=== PATIENT | male | born 1940 | race Caucasian/White ===

== ENCOUNTER 2016-10-01 14:23 | Emergency (ER) | payer MEDICARE, BC ==
--- NOTE | 2016-10-01 14:32 | ER Document Report ---
ED Medical Screen (RME) - General Stated Complaint: POSSIBLE ANIMAL BITE Time seen by provider: 14:29 Mode of Arrival: Ambulatory Information source: Patient Notes: 75-year-old male presented to ED for a raccoon bite to the left foot and ankle last night. He states that there is no pain he feels that this scratches there. Multiple scratches to his foot and ankle noted,. skin is torn in a couple areas no definite bite mag barbosa. I have greeted and performed a rapid initial assessment of this patient. A comprehensive ED assessment and evaluation of the patient, analysis of test results and completion of medical decision making process will be conducted by an additional ED providers.
[2016-10-01] MEDS ORDERED: RABIES VACCINE (PCEC)/PF 2.5 UNIT/1 ML KIT IM ONE (16:24)
[2016-10-01] MEDS ORDERED: RABIES IMMUNE GLOBULIN INJ/PF 300 UNIT/2 ML SDV IM ONE ×2 (16:24→17:08)
[2016-10-01] MEDS ORDERED: DIPH/PERTUSS(ACELL)/TETANUS VAC/PF 0.5 ML SYR (>=10YO) IM ONE (16:29)
--- NOTE | 2016-10-01 16:39 | ER Document Report ---
ED Animal Bite - General Chief Complaint: Animal Bite Stated Complaint: POSSIBLE ANIMAL BITE Mode of Arrival: Ambulatory Notes: patient is a 75 year old male who presents to the ED c/o raccoon bite last evening. He was letting his dog out when he saw a raccoon, he tried to mario it away but it came up to him, he says he fell back into a chair and he felt it on his foot. EMS came out, assessed the wound and stated no evidence of punture and cleaned it, was told to follow up at PCP. PCP then referred him to the ED for prophylaxis treatment. Sates injury is some scratches on his left foot PMH: HTN, dementia PSH: none SH: previous smoker 20 pack years, no etoh or street drugs TRAVEL OUTSIDE OF THE [place] IN LAST 30 DAYS: No - Related Data Allergies/Adverse Reactions: codeine Allergy (Verified 10/01/16 14:36) Past Medical History - General Information source: Patient, Relative - - Social History Smoking Status: Never Smoker Chew tobacco use (# tins/day): No Frequency of alcohol use: None Drug Abuse: None Family History: Reviewed & Not Pertinent Patient has suicidal ideation: No Patient has homicidal ideation: No Renal/ Medical History: Denies: Hx Peritoneal Dialysis Review of Systems - Review of Systems Constitutional: No symptoms reported EENT: No symptoms reported Cardiovascular: No symptoms reported Respiratory: No symptoms reported Gastrointestinal: No symptoms reported Genitourinary: No symptoms reported Male Genitourinary: No symptoms reported Musculoskeletal: No symptoms reported Skin: See HPI Hematologic/Lymphatic: No symptoms reported Neurological/Psychological: No symptoms reported Physical Exam - Vital signs Vitals: Temp Pulse Resp BP Pulse Ox 98.2 F 57 L 18 135/74 H 97 10/01/16 14:30 10/01/16 14:30 10/01/16 14:30 10/01/16 14:30 10/01/16 14:30 - General General appearance: Appears well, Alert In distress: None - Extremities General upper extremity: Normal inspection, Nontender, Normal color, Normal ROM. No: Edema General lower extremity: Normal inspection, Nontender, Normal color, Normal ROM , Normal strength, Normal temperature, Normal weight bearing. No: Mariana's sign Foot: Abrasion - over the top of his left foot with evidence of skin tear, extends approx 6 cm - Skin Skin Temperature: Warm Skin Moisture: Dry Skin Color: Normal Skin irregularity: other - abrasion Location of irregularity: Extremities Notes: left foot with evidence of abrasion but skin has been broken otherwise no inflammation but mild erythema, no bleeding Course - Re-evaluation Re-evalutation: 10/01/16 19:13 patient is a 75 year old male who presents after ? exposure to rabies last evening. Given that there is evidence of broken skin, indicated to treat with rabies prophylaxis. 2ml or 300u rabies Immune globulin were injected around the left foot wound, the rest was given IM by nursing. please see orders for medication documentation - Vital Signs Vital signs: Temp Pulse Resp BP Pulse Ox 97.5 F 54 L 15 155/75 H 96 10/01/16 18:07 10/01/16 18:07 10/01/16 18:07 10/01/16 18:07 10/01/16 18:07 Discharge - Discharge Clinical Impression: Rabies, need for prophylactic vaccination against, Bite by animal Condition: Good Disposition: HOME, SELF-CARE Additional Instructions: Rabies Prophyllaxis Rabies immunization can prevent infection with the rabies virus. This virus is always fatal if it reaches the nervous system. Exposure to an infected animal's saliva requires a series of shots. If you're already immunized, you may need only a booster shot. It's critical for you to follow the exact schedule of immunizations. After the first shot, we give repeat doses in 3 days, 7 days, 14 days, and 28 days. The repeat doses can also be given through the Health Department or by special arrangement with your doctor. Ibuprofen or acetaminophen can be used for aching and swelling at the injection site. Call the doctor or return if you develop increasing pain, fever , chills, or spreading redness, or if you become short of breath or faint. Please return to the emergency department for your scheduled rabies vaccines. Please see attached form for scheduled dates. Forms: Elevated Blood Pressure Referrals: NICOLE PUGH MD [Primary Care Provider] - Follow up as needed
[2016-10-01 18:23] VITALS: BP 155/75
== END 2016-10-01 18:33 | disposition home or self-care (01) ==
LOC: ER 14:23
DX: S91.352A Open bite, left foot, initial encounter (principal); W55.51XA Bitten by raccoon, initial encounter; Z20.3 Contact with and (suspected) exposure to rabies; Y92.007 Garden or yard of unspecified non-institutional (private) residence as the place of occurrence of the external cause; I10 Essential (primary) hypertension; Z87.891 Personal history of nicotine dependence; Z88.6 Allergy status to analgesic agent
CPT/HCPCS: 90376; 90471; 90675; 90715; 96372; 99283

== ENCOUNTER 2020-02-08 15:50 | Emergency (ER) | payer MEDICARE, BC ==
--- NOTE | 2020-02-08 17:40 | ER Document Report ---
ED Medical Screen (RME) - General Chief Complaint: Rib Pain Stated Complaint: RIB PAIN Time Seen by Provider: 02/08/20 17:28 Primary Care Provider: NICOLE PUGH MD [Primary Care Provider] - Follow up as needed Mode of Arrival: Wheelchair Information source: Emergency Med Personnel Notes: 79-year-old male presented to ED for left chest tenderness and he was found at [facility] confused and needed to be taken home and when he got home he complained of left chest tenderness. Family states that he is got a history of dementia and that he fell recently but they did not say when he fell. Patient does have tenderness to the left ribs to palpation. Patient is very confused. He does know his name he does know his birthdate but did not know his age or where he was. I have greeted and performed a rapid initial assessment of this patient. A comprehensive ED assessment and evaluation of the patient, analysis of test results and completion of medical decision making process will be conducted by an additional ED providers. TRAVEL OUTSIDE OF THE [place] IN LAST 30 DAYS: No - Related Data Allergies/Adverse Reactions: codeine Allergy (Verified 10/01/16 14:36) Past Medical History - Past Medical History Cardiac Medical History: Reports: Hx Hypertension Renal/ Medical History: Denies: Hx Peritoneal Dialysis - Immunizations Hx Diphtheria, Pertussis, Tetanus Vaccination: No - needs tetanus updated Physical Exam - Vital signs Vitals: Temp Pulse Resp Pulse Ox 98.7 F 81 16 96 02/08/20 17:31 02/08/20 17:31 02/08/20 17:31 02/08/20 17:31 Course - Vital Signs Vital signs: Temp Pulse Resp BP Pulse Ox 98.7 F 81 16 96 02/08/20 17:31 02/08/20 17:31 02/08/20 17:31 02/08/20 17:31 Doctor's Discharge - Discharge Referrals: NICOLE PUGH MD [Primary Care Provider] - Follow up as needed
--- NOTE | 2020-02-08 18:23 | RADIOLOGY REPORT (SQ) ---
EXAM DESCRIPTION: RIBS LEFT W/PA CHEST IMAGES COMPLETED DATE/TIME: 02/08/2020 6:04 pm REASON FOR STUDY: Recently unsure when left rib pain COMPARISON: None. TECHNIQUE: Frontal view of the chest and additional views of the left ribs acquired. NUMBER OF VIEWS: Three views LIMITATIONS: None. FINDINGS: FRONTAL CXR: No pneumothorax. No pleural effusion. No atelectasis or infiltrates. RIBS: No displaced rib fractures. No lytic or blastic bony lesions. OTHER: No other significant finding. IMPRESSION: NO PNEUMOTHORAX. NO DISPLACED RIB FRACTURES. COMMENT: SITE OF TRAUMA/COMPLAINT MARKED/STAMP COMPLETED: No TECHNICAL DOCUMENTATION: JOB ID: [id number] 2010 [employer]- All Rights Reserved Reading location - IP/workstation name: [email or web address]
[2020-02-08 19:27] LABS: ABSOLUTE BASOPHILS # (AUTO) 0.1 10^3/uL (0.0-0.2); ABSOLUTE EOSINOPHILS # (AUTO) 0.2 10^3/uL (0.0-0.6); ABSOLUTE LYMPHOCYTES (AUTO) 1.6 10^3/uL (0.5-4.7); ABSOLUTE MONOCYTES (AUTO) 0.9 10^3/uL (0.1-1.4); ABSOLUTE NEUT (AUTO) 6.6 10^3/uL (1.7-8.2); BASOPHILS % (AUTO) 1.1 % (0-2); EOSINOPHILS % (AUTO) 1.8 % (0-6); HEMATOCRIT 46.5 % (37.9-51.0); HEMOGLOBIN 15.9 g/dL (13.5-17.0); LYMPHOCYTES % (AUTO) 16.7 % (13-45); MEAN CORPUSCULAR HEMOGLOBIN 31.9 pg (27.0-33.4); MEAN CORPUSCULAR HGB CONC 34.2 g/dL (32.0-36.0); MEAN CORPUSCULAR VOLUME 93 fl (80-97); MONOCYTES % (AUTO) 9.9 % (3-13); PLATELET COUNT 205 10^3/uL (150-450); RED BLOOD COUNT 4.98 10^6/uL (4.35-5.55); SEGMENTED NEUTROPHILS % (AUTO) 70.5 % (42-78); TOTAL CELLS COUNTED % (AUTO) 100 %; WHITE BLOOD COUNT 9.4 10^3/uL (4.0-10.5)
[2020-02-08 19:45] LABS: APPEARANCE,URINE SLIGHTLY-CLOUDY; BILIRUBIN,URINE NEGATIVE (NEGATIVE); CALCIUM OXALATE CRYSTALS,URINE RARE /HPF; COLOR,URINE YELLOW; GLUCOSE, URINE >=500 mg/dL (NEGATIVE); KETONES,URINE NEGATIVE (NEGATIVE); LEUKOCYTE ESTERASE,URINE NEGATIVE (NEGATIVE); NITRITE,URINE NEGATIVE (NEGATIVE); PROTEIN,URINE NEGATIVE (NEGATIVE); URINE SPECIFIC GRAVITY 1.021
[2020-02-08 19:48] LABS: ALBUMIN 4.3 g/dL (3.5-5.0); ALKALINE PHOSPHATASE 117 U/L (38-126); ANION GAP 8 (5-19); ASPARTATE AMINO TRANSFERASE 29 U/L (17-59); BLOOD UREA NITROGEN 16 mg/dL (7-20); CALCIUM 9.2 mg/dL (8.4-10.2); CARBON DIOXIDE 32 mmol/L (22-30); CHLORIDE 99 mmol/L (98-107); GLUCOSE 162 mg/dL (75-110); POTASSIUM 4.3 mmol/L (3.6-5.0)
[2020-02-08 19:49] LABS: BILIRUBIN,TOTAL 0.6 mg/dL (0.2-1.3); TOTAL PROTEIN 7.1 g/dL (6.3-8.2)
--- NOTE | 2020-02-08 22:53 | ER Document Report ---
ED General - General Chief Complaint: Rib Pain Stated Complaint: RIB PAIN Time Seen by Provider: 02/08/20 17:28 Primary Care Provider: NICOLE PUGH MD [NO LOCAL MD] - Follow up as needed Mode of Arrival: Wheelchair TRAVEL OUTSIDE OF THE [place] IN LAST 30 DAYS: No - HPI Onset: Just prior to arrival Onset/Duration: Gradual Quality of pain: Achy Severity: Mild Pain Level: 1 Associated symptoms: Other - pain with taking a deep breath on left side Exacerbated by: Deep breathing Relieved by: Denies Similar symptoms previously: No Recently seen / treated by doctor: No Notes: 79 year old male with a history of Dementia and HTN who lives with his brought to the ER for left sided chest wall pain after an apparent fall. The patient can not tell me why he is in the ER this evening and he does not kate mber what happened earlier in the day. Apparently the patient's family wanted the patient evaluated for left sided chest wall pain and left leg pain. The patient has no leg complaints when I ask him and he is able to ambulate without any issues. - Related Data Allergies/Adverse Reactions: codeine Allergy (Verified 10/01/16 14:36) Past Medical History - General Information source: Patient, Emergency Med Personnel - Social History Smoking Status: Former Smoker Frequency of alcohol use: None Drug Abuse: None Lives with: Spouse/Significant other Family History: Reviewed & Not Pertinent Patient has homicidal ideation: No - Past Medical History Cardiac Medical History: Reports: Hx Hypertension Renal/ Medical History: Denies: Hx Peritoneal Dialysis - Immunizations Hx Diphtheria, Pertussis, Tetanus Vaccination: No - needs tetanus updated Review of Systems - Review of Systems Constitutional: Other - confusion EENT: No symptoms reported Cardiovascular: Chest pain - left chest wall Respiratory: No symptoms reported Gastrointestinal: No symptoms reported Genitourinary: No symptoms reported Male Genitourinary: No symptoms reported Musculoskeletal: Other - Left chest wall pain. Family said patient had leg pain too but patient denies this to me Skin: No symptoms reported Hematologic/Lymphatic: No symptoms reported Neurological/Psychological: No symptoms reported -: Yes All other systems reviewed and negative Physical Exam - Vital signs Vitals: Temp Pulse Resp Pulse Ox 98.7 F 81 16 96 02/08/20 17:31 02/08/20 17:31 02/08/20 17:31 02/08/20 17:31 - Notes Notes: GENERAL: Well-appearing, well-nourished and in no acute distress. HEAD: Atraumatic, normocephalic. EYES: Pupils equal round and reactive to light, extraocular movements intact, sclera anicteric, conjunctiva are normal. ENT: External ears normal, nares patent, oropharynx clear without exudates. Moist mucous membranes. NECK: Normal range of motion, supple without lymphadenopathy or JVD. LUNGS: Breath sounds clear to auscultation bilaterally and equal. No wheezes rales or rhonchi. HEART: Regular rate and rhythm without murmurs, rubs or gallops. ABDOMEN: Soft, nontender, normoactive bowel sounds. No guarding, no rebound. No masses appreciated. EXTREMITIES: Normal range of motion, no pitting or edema. No clubbing or cyanosis. NEUROLOGICAL: Cranial nerves II through XII grossly intact. Normal speech and gait. Oriented to person but not to time or place. PSYCH: Normal mood, normal affect. SKIN: Warm, Dry, normal turgor, no rashes or lesions noted. Course - Re-evaluation Re-evalutation: 02/08/20 23:11 The patient is ambulating without assistance in the ER and he is eating on his own without a problem. The patient has dementia and he does not know why he is in the ER. When asked if he has pain in his left chest he says yes but it is difficult to reproduce on physical exam. When asked if he is having any leg pain he says no and he shakes each leg and walks on them with no problems. The pat ient had blood work and a UA which were unremarkable. Patient had a chest xray and left sided rib films which showed no acute process. Patient discharged and told to follow up with his PCP. - Vital Signs Vital signs: Temp Pulse Resp BP Pulse Ox 98.7 F 81 16 204/88 H 96 02/08/20 17:31 02/08/20 17:31 02/08/20 17:31 02/08/20 17:37 02/08/20 17:31 - Laboratory Result Diagrams: 02/08/20 18:47 02/08/20 18:47 Laboratory results interpreted by me: 02/08/20 02/08/20 18:47 18:47 Carbon Dioxide 32 H Glucose 162 H Urine Glucose (UA) >=500 H Urine Urobilinogen 4.0 H Urine Ascorbic Acid 40 H - Diagnostic Test Radiology reviewed: Image reviewed, Reports reviewed Discharge - Discharge Clinical Impression: Chest wall pain Dementia Qualifiers: Dementia type: unspecified type Dementia behavioral disturbance: without behavioral disturbance Qualified Code(s): F03.90 - Unspecified dementia without behavioral disturbance Condition: Stable Disposition: HOME, SELF-CARE Instructions: Chest Wall Pain ([facility]), Dementia ([facility]) Additional Instructions: Follow up with your primary care doctor. You were seen in the ER for left sided chest wall pain. You had blood work and a chest xray which showed no acute process. Referrals: NICOLE PUGH MD [NO LOCAL MD] - Follow up as needed
[2020-02-08 23:36] VITALS: BP 161/83
== END 2020-02-08 23:42 | disposition home or self-care (01) ==
LOC: ER 15:50
DX: R07.89 Other chest pain (principal); F03.90 Unspecified dementia, unspecified severity, without behavioral disturbance, psychotic disturbance, mood disturbance, and anxiety; R07.81 Pleurodynia; M79.605 Pain in left leg; Z88.8 Allergy status to other drugs, medicaments and biological substances; Z87.891 Personal history of nicotine dependence; I10 Essential (primary) hypertension
CPT/HCPCS: 36415; 80053; 81001; 83735; 84484; 85025; 99284